=== PATIENT | female | born 1960 | race Caucasian/White ===

== ENCOUNTER 2016-11-17 19:38 | Emergency (ER) | payer SELFPAY ==
[~2016-11-17 19:38] MED LIST: NAPR500 PO; Z.0.NO CURRENT MEDS
[2016-11-17 19:40] VITALS: BP 176/91; PULSE 91; RESP 16; TEMP 98.7; O2SAT 99
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
[2016-11-17] MEDS ORDERED: IBUPROFEN 600 MG TAB PO ONE (21:30)
--- NOTE | 2016-11-17 21:31 | RADRPT ---
EXAM DATE/TIME: 11/17/2016 21:11 [facility] COMPARISON: No previous studies available for comparison. INDICATIONS : Left knee pain after knee gave out today. MEDICAL HISTORY : None. SURGICAL HISTORY : None. ENCOUNTER: Initial ACUITY: 1 day PAIN SCORE: 10/10 LOCATION: Left patella. FINDINGS: Four view examination of the left knee demonstrates no evidence of fracture or dislocation. Bony min eralization is normal. The articular surfaces are intact. The suprapatellar soft tissues have a nor mal configuration. CONCLUSION: No acute disease. Ruben Cole MD on November 17, 2016 at 21:30 Board Certified Radiologist. This report was verified electronically.
[2016-11-17] MEDS ORDERED: PERC5TAB12 PO (21:50)
[2016-11-17] MEDS ORDERED: IBUP-232 PO (21:50)
== END 2016-11-17 22:17 | disposition home or self-care (01) ==
LOC: NEPD 19:38
DX: S83.92XA Sprain of unspecified site of left knee, initial encounter (principal); Z79.899 Other long term (current) drug therapy; W22.8XXA Striking against or struck by other objects, initial encounter
CPT/HCPCS: 73564; 99283; E0113; L1830